=== PATIENT | female | born 1990 | race Caucasian/White ===

== ENCOUNTER → 2020-04-18 | Outpatient (CLI) | payer OTHER ==
--- NOTE | 2020-04-18 10:14 | PFTRPT ---
Visit Date: 04/18/2020 Referring Doctor: MD Champion David Height: 64.00 Inches Weight: 218.00 Lbs BSA: 2.03 Diagnosis: R06.02 Pre and post bronchodilator studies have excellent technical quality. Forced vital capacity is normal. FEV1 is in proportion. Obstructive index is therefore normal. Expiratory limit of the flow-volume loop is normal. No significant bronchodilator response is identified. Total lung capacity is normal. Residual volume is in proportion. Diffusing capacity is normal and remains normal when corrected for alveolar volume, and hemoglobin is acceptable at 12.9. Airway resistance and conductance are normal. IMPRESSION: Normal study. MTDD
== END ==
LOC: M CARPUL 09:35
PROVIDERS: ATTEND Internal Medicine Cardiovascular Disease
DX: R06.02 Shortness of breath (principal)

== ENCOUNTER → 2020-10-23 | Outpatient (REF) | payer OTHER ==
[2020-10-23 18:43] LABS: MAU/CREAT RATIO 11.4 MCG/MG (0.0-30.0)
== END ==
LOC: M LAB REF 16:59
PROVIDERS: ATTEND Nurse Practitioner Family
DX: E11.65 Type 2 diabetes mellitus with hyperglycemia (principal)

== ENCOUNTER → 2021-02-25 | Outpatient (CLI) | payer OTHER ==
--- NOTE | 2021-03-01 16:34 | ECGEPIP ---
[facility] [place] Test Date: 2021-02-25 Pat Name: DA ZAVALA Department: Room: - Gender: Female [employer] Salesperson: leta : 1990 Requested By: UNIQUE Polo Order Number: [id number] Reading MD: Armando Nuñez Measurements Intervals [place] Rate: 97 P: 36 TN: 126 QRS: 66 QRSD: 80 T: 19 QT: 348 QTc: 441 Interpretive Statements Normal sinus rhythm No prior tracing in the system Electronically Signed on 03-01-2021 16:33:33 EDT by Armando Nuñez
== END ==
LOC: M EKG 14:56
PROVIDERS: ATTEND Obstetrics & Gynecology
DX: E11.9 Type 2 diabetes mellitus without complications (principal)

== ENCOUNTER 2021-05-16 20:26 | Inpatient (IN) | payer OTHER ==
[~2021-05-16] VITALS: Ht 162.6 cm; Wt 110.5 kg
[2021-05-16 20:45] VITALS: BP 183/116
[2021-05-16 20:47] VITALS: BP 179/95
[2021-05-16] MEDS ORDERED: PRENTAB9 PO (20:50)
[2021-05-16] MEDS ORDERED: INSUNSD SC (20:50)
[2021-05-16] MEDS ORDERED: NOVOINJ12 SC (20:50)
[2021-05-16] MEDS ORDERED: LABE200T32 PO (20:50)
[2021-05-16 21:05] VITALS: BP 177/106
[2021-05-16] MEDS ORDERED: hydrALAZINE 20MG/ML 1ML VIAL (J0360 PER 20MG) IV STA (21:08)
[2021-05-16 21:28] VITALS: BP 177/93
[2021-05-16] MEDS ORDERED: LABETALOL 200 MG TAB PO STA (21:36)
[2021-05-16 21:48] VITALS: BP 167/90
[2021-05-16 21:48] LABS: HEMATOCRIT 36.4 % (36.0-47.0); HEMOGLOBIN 11.8 g/dl (12.0-15.5); MEAN CORPUSCULAR HEMOGLOBIN 28.3 pg (27.0-33.0); MEAN CORPUSCULAR HGB CONC 32.4 g/dl (32.0-36.5); MEAN CORPUSCULAR VOLUME 87.3 fl (80.0-96.0); PLATELET COUNT, AUTOMATED 394 10^3/uL (150-450); RED BLOOD COUNT 4.17 10^6/uL (4.00-5.40); WHITE BLOOD COUNT 13.6 10^3/uL (4.0-10.0)
[2021-05-16 22:09] VITALS: BP 165/95
[2021-05-16 22:09] LABS: CREATININE,RANDOM URINE 45.6 MG/DL; TOTAL PROTEIN,RANDOM URINE 37.4 MG/DL (0.0-12.0)
[2021-05-16] MEDS ORDERED: LACTATED RINGER'S 1000 ML IV STA (22:11)
[2021-05-16 22:12] LABS: ALBUMIN 2.9 GM/DL (3.2-5.2); ALT/SGPT 27 U/L (12-78); BILIRUBIN,TOTAL 0.2 MG/DL (0.2-1.0); BLOOD UREA NITROGEN 16 MG/DL (7-18); CALCIUM LEVEL 8.8 MG/DL (8.5-10.1); CARBON DIOXIDE LEVEL 22 MEQ/L (21-32); CHLORIDE LEVEL 107 MEQ/L (98-107); CREATININE FOR GFR 0.52 MG/DL (0.55-1.30); GLOMERULAR FILTRATION RATE > 60.0 (>60); GLUCOSE, FASTING 124 MG/DL (70-100); LDH LACTATE DEHYDROGENASE 191 U/L (84-246); SODIUM LEVEL 140 MEQ/L (136-145); TOTAL PROTEIN 6.7 GM/DL (6.4-8.2)
[2021-05-16] MEDS ORDERED: BICITRA 30ML SOLN UDC PO ONE (22:15)
[2021-05-16] MEDS ORDERED: ceFAZolin SOD 2 GM in IV 1 EA IV ONE (22:15)
[2021-05-16] MEDS ORDERED: LR 1,000 ML IV SCH (22:15)
[2021-05-16] MEDS ORDERED: AZITHROMYCIN INJ 500 MG, VIAL MATE ADAPTER 1 EACH in NS 250 ML IV ONE (22:15)
[2021-05-16] MEDS ORDERED: fentaNYL 100 MCG/2 ML INJECTION (J3010) As Ordered ONE ×2 (22:29→23:02)
[2021-05-16] MEDS ORDERED: CARBOPROST TROMETHAMINE 250 MCG/ML AMP ONE (22:30)
[2021-05-16] MEDS ORDERED: propofoL 200 MG/20 ML VIAL As Ordered ONE ×2 (22:30→23:35)
[2021-05-16] MEDS ORDERED: hydrALAZINE 20MG/ML 1ML VIAL (J0360 PER 20MG) As Ordered ONE (22:39)
[2021-05-16] MEDS ORDERED: OXYTOCIN INJ 10 UNITS/ML VIAL (J2590) As Ordered ONE (22:44)
[2021-05-16] MEDS ORDERED: MIDAZOLAM INJ 2MG/2ML VIAL (J2250 PER 1MG) As Ordered ONE (22:47)
[2021-05-16] MEDS ORDERED: dexameTHASONE 4 MG/ML 1ML VIAL (J1100 PER 1MG) As Ordered ONE (22:48)
[2021-05-16] MEDS ORDERED: METOCLOPRAMIDE INJ 10MG/2ML VIAL (J2765 PER 1) As Ordered ONE (22:48)
[2021-05-16] MEDS ORDERED: ONDANSETRON 4MG/2ML VIAL As Ordered ONE (22:48)
[2021-05-16] MEDS ORDERED: LIDOCAINE 2% 100MG/5ML SDV (FOR ANES.) As Ordered ONE (22:49)
[2021-05-16 22:59] LABS: CORD GAS ABE A -3.9; CORD GAS ABE V -6.4; CORD GAS HCO3 A 22.5 MEQ/L; CORD GAS HCO3 V 21.5 MEQ/L; CORD GAS O2 SAT A 69.7 %; CORD GAS O2 SAT V 45.4 %; CORD GAS PCO2 A 45.2 mmHg; CORD GAS PCO2 V 51.6 mmHg; CORD GAS PH A 7.314 UNITS; CORD GAS PH V 7.238 UNITS; CORD GAS PO2 A 29.5 mmHg; CORD GAS PO2 V 21.7 mmHg; CORD GAS SBC A 20.6 MEQ/L; CORD GAS SBC V 18.1 MEQ/L; CORD GAS TCO2 A 23.8 MEQ/L; CORD GAS TCO2 V 23.1 MEQ/L
[2021-05-16] MEDS ORDERED: BUPIVACAINE HCL 0.25% 10ML VIAL As Ordered ONE (23:08)
[2021-05-16] MEDS ORDERED: OXYTOCIN 30 UNITS IN 0.9% NaCl 500ML IV BAG (J2590) As Ordered ONE (23:33)
[2021-05-16] MEDS ORDERED: HYDROMORPHONE HCL 0.5 MG/ 0.5 ML SYRINGE (J1170 PER 1) As Ordered ONE (23:47)
[2021-05-17] VITALS (27 sets, daily range): BP systolic 129–184; BP diastolic 74–98
[2021-05-17] MEDS ORDERED: PROMETHAZINE 25 MG TAB PO PRN (00:25)
[2021-05-17] MEDS ORDERED: OXYTOCIN DRIP 30 UNITS in IV 1 EA IV SCH ×4 (00:25)
[2021-05-17] MEDS ORDERED: ONDANSETRON 4MG/2ML VIAL IV PRN ×2 (00:25→01:00)
[2021-05-17] MEDS ORDERED: MEASLES,MUMPS,RUBELLA VACCINE INJ (MMR-II) (90707) SC SCH (00:25)
[2021-05-17] MEDS ORDERED: RHOGAM 300 MCG (1500 IU) INJ (J2790) IM SCH (00:25)
[2021-05-17] MEDS ORDERED: SIMETHICONE 80MG CHEW TAB PO PRN (00:25)
[2021-05-17] MEDS ORDERED: LR 1,000 ML IV SCH ×3 (00:25→00:55)
[2021-05-17] MEDS ORDERED: oxyCODONE 5MG TAB PO PRN ×3 (00:25→00:55)
[2021-05-17] MEDS ORDERED: CALCIUM GLUCONATE 1,000 MG in D5W MINI-BAG PLUS 100 ML IV PRN (00:45)
[2021-05-17] MEDS: LABETALOL 100MG/20ML VIAL IV PRN ×5 (00:45→01:12)
[2021-05-17] MEDS ORDERED: MORPHINE 2 MG/ML 1ML VIAL (J2270) IV PRN (00:55)
[2021-05-17] MEDS ORDERED: fentaNYL 100 MCG/2 ML INJECTION (J3010) IV PRN (00:55)
[2021-05-17] MEDS ORDERED: MAG Sulf (L&D) 4 GM/100 ML 4 GM in IV 1 EA IV ONE (01:00)
[2021-05-17] MEDS ORDERED: GLUCOSE 4GM CHEW TABLET PO PRN (01:35)
[2021-05-17] MEDS ORDERED: DEXTROSE 50% 50 ML SYRINGE IV PRN (01:35)
[2021-05-17] MEDS ORDERED: GLUCAGON INJ 1MG VIAL SC PRN (01:35)
[2021-05-17] MEDS: MAG Sulf (OBGYN) 20GM/500ML 20,000 MG in IV 1 EA IV SCH ×3 (02:15→22:17)
[2021-05-17 04:59] LABS: APPEARANCE, URINE CLEAR (CLEAR); BACTERIA, URINE AUTO NEGATIVE (NEGATIVE); BILIRUBIN, URINE AUTO NEGATIVE (NEGATIVE); BLOOD, URINE BLOOD NEGATIVE (NEGATIVE); COLOR, URINE YELLOW (YELLOW); GLUCOSE, URINE (UA) AUTO 1+ mg/dL (NEGATIVE); KETONE, URINE AUTO NEGATIVE (NEGATIVE); LEUKOCYTE ESTERASE, URINE AUTO NEGATIVE (NEGATIVE); MUCUS, URINE SMALL (NEGATIVE); NITRITE, URINE AUTO NEGATIVE (NEGATIVE); PROTEIN, URINE AUTO 1+ mg/dL (NEGATIVE); RBC, URINE AUTO 0 /HPF (0-3); SPECIFIC GRAVITY URINE AUTO 1.012 (1.002-1.035); SQUAMOUS EPITHELIAL CELL UR AU 0 /HPF (0-6); UROBILINOGEN, URINE AUTO 0.2 mg/dL (0.0-2.0); WBC, URINE AUTO 0 /HPF (0-3)
[2021-05-17] MEDS: KETOROLAC 30 MG/ML 1ML VIAL IV SCH ×3 (05:12→16:39)
[2021-05-17] MEDS: ACETAMINOPHEN 500 MG TAB PO SCH ×3 (06:11→18:12)
[2021-05-17] MEDS: HumaLOG INSULIN (NovoLOG) PER UNIT SC SCH ×4 (06:59→21:00)
[2021-05-17] MEDS ORDERED: PRENATAL VITAMINS CHEWABLE TABLET PO SCH (09:00)
[2021-05-17] MEDS: PRENATAL VITAMINS CHEWABLE TABLET PO SCH (09:17)
[2021-05-17] MEDS: DOCUSATE SODIUM 100MG CAPSULE PO SCH ×2 (09:17→20:55)
[2021-05-17] MEDS: LABETALOL 200 MG TAB PO SCH ×2 (09:17→20:55)
[2021-05-18] VITALS (10 sets, daily range): BP systolic 129–166; BP diastolic 74–96
[2021-05-18] MEDS ORDERED: UNRESOLVED CLARIFICATION ENTRY XX SCH (00:01)
[2021-05-18] MEDS: ACETAMINOPHEN 500 MG TAB PO SCH ×4 (00:21→18:02)
[2021-05-18] MEDS: IBUPROFEN 800 MG TAB PO SCH ×3 (01:15→18:02)
[2021-05-18 07:06] LABS: HEMATOCRIT 26.9 % (36.0-47.0); MEAN CORPUSCULAR HEMOGLOBIN 28.3 pg (27.0-33.0); MEAN CORPUSCULAR HGB CONC 32.3 g/dl (32.0-36.5); MEAN CORPUSCULAR VOLUME 87.6 fl (80.0-96.0); PLATELET COUNT, AUTOMATED 310 10^3/uL (150-450); RED BLOOD COUNT 3.07 10^6/uL (4.00-5.40); WHITE BLOOD COUNT 11.6 10^3/uL (4.0-10.0)
[2021-05-18 07:08] LABS: HEMOGLOBIN 8.7 g/dl (12.0-15.5)
[2021-05-18] MEDS: HumaLOG INSULIN (NovoLOG) PER UNIT SC SCH ×4 (09:00→21:00)
[2021-05-18] MEDS: DOCUSATE SODIUM 100MG CAPSULE PO SCH ×2 (09:06→21:13)
[2021-05-18] MEDS: PRENATAL VITAMINS CHEWABLE TABLET PO SCH (09:07)
[2021-05-18] MEDS: LABETALOL 200 MG TAB PO SCH ×2 (09:07→18:30)
[2021-05-19] MEDS: ACETAMINOPHEN 500 MG TAB PO SCH ×2 (00:06→06:32)
[2021-05-19] MEDS: IBUPROFEN 800 MG TAB PO SCH ×2 (00:06→08:01)
[2021-05-19 02:00] VITALS: BP 145/85
[2021-05-19 06:00] VITALS: BP 160/85
[2021-05-19] MEDS ORDERED: ACET-683 PO (06:24)
[2021-05-19] MEDS ORDERED: OXYC-517 PO (06:24)
[2021-05-19] MEDS ORDERED: IBUP80TA PO (06:24)
[2021-05-19] MEDS: HumaLOG INSULIN (NovoLOG) PER UNIT SC SCH (07:30)
[2021-05-19] MEDS: DOCUSATE SODIUM 100MG CAPSULE PO SCH (08:01)
[2021-05-19] MEDS: PRENATAL VITAMINS CHEWABLE TABLET PO SCH (08:01)
[2021-05-19 08:12] VITALS: BP 165/85
[2021-05-19] MEDS: LABETALOL 200 MG TAB PO SCH (08:12)
[2021-05-19 08:15] VITALS: BP 168/85
[2021-05-19 08:35] VITALS: BP 164/91
[2021-05-19 09:20] VITALS: BP 159/87
== END 2021-05-19 09:25 | disposition home or self-care (01) | DRG 773 ==
LOC: M LDO 20:26 → M LDI 22:12 → M OBS 05-18 03:59
PROVIDERS: ADMIT Obstetrics & Gynecology; ATTEND Obstetrics & Gynecology
PROC: 10D00Z1 Extraction of Products of Conception, Low, Open Approach (ICD-10-PCS; principal; 2021-05-17)
DX: O14.14 Severe pre-eclampsia complicating childbirth (principal); Z37.0 Single live birth; Z3A.32 32 weeks gestation of pregnancy; O76 Abnormality in fetal heart rate and rhythm complicating labor and delivery; O34.03 Maternal care for unspecified congenital malformation of uterus, third trimester; E11.9 Type 2 diabetes mellitus without complications; O24.32 Unspecified pre-existing diabetes mellitus in childbirth; F17.200 Nicotine dependence, unspecified, uncomplicated; O99.334 Smoking (tobacco) complicating childbirth

== ENCOUNTER 2023-03-18 15:30 | Emergency (ER) | payer OTHER ==
[~2023-03-18] VITALS: Ht 162.6 cm; Wt 96.9 kg
[~2023-03-18 15:30] MED LIST: ACET-683 PO; IBUP80TA PO; INSUNSD SC; LABE200T5 PO; NOVOINJ12 SC; OXYC-517 PO; PRENTAB9 PO
[2023-03-18 17:16] LABS: BASO % 0.1 % (0.0-1.0); EOS % 0.1 % (0.0-3.0); HEMATOCRIT 35.5 % (36.0-47.0); LYMPH # 1.2 10^3/uL (1.5-5.0); LYMPH % 7.8 % (24.0-44.0); MEAN CORPUSCULAR HEMOGLOBIN 30.5 pg (27.0-33.0); MEAN CORPUSCULAR HGB CONC 33.8 g/dl (32.0-36.5); MEAN CORPUSCULAR VOLUME 90.3 fl (80.0-96.0); MONO # 0.4 10^3/uL (0.0-0.8); MONO % 2.6 % (2.0-8.0); NEUTROPHILS # 13.3 10^3/uL (1.5-8.5); NEUTROPHILS % 88.9 % (36.0-66.0); PLATELET COUNT, AUTOMATED 340 10^3/uL (150-450); RED BLOOD COUNT 3.93 10^6/uL (4.00-5.40); WHITE BLOOD COUNT 14.9 10^3/uL (4.0-10.0)
[2023-03-18 17:26] LABS: HEMOGLOBIN A1c 5.5 % (4.0-6.0)
[2023-03-18 17:46] LABS: ALBUMIN 3.6 G/DL (3.2-5.2); ALKALINE PHOSPHATASE 47 U/L (46-116); ALT/SGPT 24 U/L (7.0-40); AST/SGOT 12 U/L (<34); BILIRUBIN,DIRECT < 0.1 MG/DL (<0.4); BILIRUBIN,TOTAL 0.3 MG/DL (0.3-1.2); BLOOD UREA NITROGEN 18 MG/DL (9-23); CALCIUM LEVEL 9.1 MG/DL (8.5-10.1); CARBON DIOXIDE LEVEL 26 MMOL/L (20-31); CHLORIDE LEVEL 104 MMOL/L (98-107); CREATININE FOR GFR 0.37 MG/DL (0.55-1.30); GLOMERULAR FILTRATION RATE > 60.0 (>60); GLUCOSE, FASTING 104 MG/DL (60-100); POTASSIUM SERUM 3.9 MMOL/L (3.5-5.1); SODIUM LEVEL 138 MMOL/L (136-145); TOTAL PROTEIN 6.9 G/DL (5.7-8.2)
[2023-03-18 17:49] LABS: HCG, SERUM QUALITATIVE POSITIVE (NEGATIVE)
[2023-03-18 19:19] VITALS: TEMP 97.9
[2023-03-18 20:45] VITALS: BP 121/79
[2023-03-18 20:46] VITALS: O2SAT 99
== END 2023-03-18 21:09 | disposition home or self-care (01) ==
LOC: M ED 15:30
DX: O99.810 Abnormal glucose complicating pregnancy (principal); O24.112 Pre-existing type 2 diabetes mellitus, in pregnancy, second trimester; Z79.4 Long term (current) use of insulin; Z79.1 Long term (current) use of non-steroidal anti-inflammatories (NSAID); Z79.899 Other long term (current) drug therapy; Z79.891 Long term (current) use of opiate analgesic

== ENCOUNTER → 2023-05-27 | Outpatient (CLI) | payer OTHER | LOC: M WHC 11:59 | PROVIDERS: ATTEND Specialist | DX: O24.112 Pre-existing type 2 diabetes mellitus, in pregnancy, second trimester (principal) ==

== ENCOUNTER → 2023-05-28 | Outpatient (CLI) | payer OTHER ==
[2023-05-28 14:03] LABS: HEMATOCRIT 32.7 % (36.0-47.0); HEMOGLOBIN 11.1 g/dl (12.0-15.5); MEAN CORPUSCULAR HGB CONC 33.9 g/dl (32.0-36.5); MEAN CORPUSCULAR VOLUME 88.4 fl (80.0-96.0); PLATELET COUNT, AUTOMATED 324 10^3/uL (150-450)
== END ==
LOC: M PLALAB 11:29
PROVIDERS: ATTEND Specialist
DX: O24.112 Pre-existing type 2 diabetes mellitus, in pregnancy, second trimester (principal); Z3A.00 Weeks of gestation of pregnancy not specified

== ENCOUNTER → 2023-06-29 | Outpatient (CLI) | payer OTHER ==
[2023-06-29 11:08] LABS: HEMOGLOBIN A1c 6.3 % (4.0-6.0)
== END ==
LOC: M PLALAB 08:19
PROVIDERS: ATTEND Obstetrics & Gynecology
DX: O34.219 Maternal care for unspecified type scar from previous cesarean delivery (principal); Z3A.00 Weeks of gestation of pregnancy not specified

== ENCOUNTER → 2023-06-29 | Outpatient (CLI) | payer OTHER | LOC: M WHC 07:07 | PROVIDERS: ATTEND Obstetrics & Gynecology | DX: O34.219 Maternal care for unspecified type scar from previous cesarean delivery (principal); Z3A.31 31 weeks gestation of pregnancy; O32.1XX0 Maternal care for breech presentation, not applicable or unspecified ==

== ENCOUNTER → 2023-07-21 | Outpatient (REF) | payer OTHER ==
[~2023-07-21] MED LIST changes: +ACET-839 PO; +HUMU1INJ2 SC; +INSU100I12 SQ; +LABE100T6 PO
== END ==
LOC: M SFHCWAGY 10:26
PROVIDERS: ATTEND Specialist
DX: O24.313 Unspecified pre-existing diabetes mellitus in pregnancy, third trimester (principal)

== ENCOUNTER 2023-08-06 07:10 | Inpatient (IN) | payer OTHER ==
[~2023-08-06] VITALS: Ht 162.6 cm; Wt 121.5 kg
[2023-08-06] VITALS (10 sets, daily range): BP systolic 131–170; BP diastolic 72–94; O2SAT 97–99
[2023-08-06] MEDS ORDERED: ASPI81CH33 PO (07:44)
[2023-08-06] MEDS ORDERED: HOME MED LIST COMPLETE! XX SCH (07:50)
[2023-08-06] MEDS: LACTATED RINGER'S 1000 ML IV STA (08:06)
[2023-08-06] MEDS ORDERED: LR 1,000 ML IV SCH (08:35)
[2023-08-06 08:40] LABS: HEMATOCRIT 30.3 % (36.0-47.0); HEMOGLOBIN 10.1 g/dl (12.0-15.5); MEAN CORPUSCULAR HEMOGLOBIN 28.8 pg (27.0-33.0); MEAN CORPUSCULAR HGB CONC 33.3 g/dl (32.0-36.5); MEAN CORPUSCULAR VOLUME 86.3 fl (80.0-96.0); PLATELET COUNT, AUTOMATED 282 10^3/uL (150-450); RED BLOOD COUNT 3.51 10^6/uL (4.00-5.40); WHITE BLOOD COUNT 10.9 10^3/uL (4.0-10.0)
[2023-08-06] MEDS ORDERED: MORPHINE PRES-FREE INJ 10 MG/10 ML VIAL As Ordered ONE (08:44)
[2023-08-06] MEDS ORDERED: KETOROLAC 60MG 2ML VIAL As Ordered ONE (08:44)
[2023-08-06] MEDS ORDERED: ACETAMINOPHEN 1000MG 100ML IV BAG As Ordered ONE (08:44)
[2023-08-06] MEDS ORDERED: ONDANSETRON 4MG 2ML VIAL As Ordered ONE (08:44)
[2023-08-06] MEDS ORDERED: OXYTOCIN 30UNITS IN 0.9% NaCl 500ML IV BAG As Ordered ONE (08:44)
[2023-08-06] MEDS ORDERED: ceFAZolin 1GM VIAL As Ordered ONE (09:02)
[2023-08-06] MEDS: ceFAZolin SOD 2 GM in IV 1 EA IV ONE (09:07)
[2023-08-06] MEDS: ceFAZolin SOD 1 GM in D5W MINI-BAG PLUS 50 ML IV ONE (09:07)
[2023-08-06] MEDS: LR 1,000 ML IV SCH ×3 (09:07→11:42)
[2023-08-06] MEDS: BICITRA 30ML SOLN UDC PO ONE (09:09)
[2023-08-06] MEDS ORDERED: PHENYLephrine 500MCG 5ML (100MCG/ML) SYRINGE As Ordered ONE (10:37)
[2023-08-06] MEDS ORDERED: GLUCOSE 4GM CHEW TABLET PO PRN (10:55)
[2023-08-06] MEDS ORDERED: MEPERIDINE 25 MG/ML 1ML VIAL IV PRN (10:55)
[2023-08-06] MEDS ORDERED: fentaNYL 100 MCG/2 ML INJECTION IV PRN (10:55)
[2023-08-06] MEDS ORDERED: NALBUPHINE HCL 1MG/0.1ML (100MG/10ML) MDV IV PRN ×2 (10:55)
[2023-08-06] MEDS ORDERED: **NOTE PATIENT COMMENT** MISC XX SCH (10:55)
[2023-08-06] MEDS ORDERED: INSULIN LISPRO (NovoLOG) PER UNIT SC PRN (10:55)
[2023-08-06] MEDS ORDERED: PROMETHAZINE 25MG/ML 1ML VIAL IV PRN (10:55)
[2023-08-06] MEDS ORDERED: GLUCAGON INJ 1MG VIAL SC PRN (10:55)
[2023-08-06] MEDS ORDERED: NALOXONE INJ 0.4MG/1ML VIAL IV PRN ×2 (10:55)
[2023-08-06] MEDS ORDERED: DEXTROSE 50% 50ML SYRINGE IV PRN (10:55)
[2023-08-06] MEDS ORDERED: SLF 3 ML SYR IV SCH (10:55)
[2023-08-06] MEDS ORDERED: ONDANSETRON 4MG 2ML VIAL IV PRN (10:55)
[2023-08-06] MEDS ORDERED: oxyCODONE 5MG TAB PO PRN (10:55)
[2023-08-06] MEDS ORDERED: PERCOCET 5MG/325MG TAB PO PRN ×2 (11:30)
[2023-08-06] MEDS ORDERED: RHOGAM 300MCG (1500IU) INJ IM SCH (11:30)
[2023-08-06] MEDS ORDERED: SIMETHICONE 80MG CHEW TAB PO PRN (11:30)
[2023-08-06] MEDS: OXYTOCIN DRIP 30 UNITS in IV 1 EA IV SCH (11:42)
[2023-08-06] MEDS: ONDANSETRON 4MG 2ML VIAL IV PRN (12:11)
[2023-08-06] MEDS ORDERED: METOCLOPRAMIDE INJ 10MG/2ML VIAL As Ordered ONE (12:28)
[2023-08-06] MEDS: METOCLOPRAMIDE INJ 10MG/2ML VIAL IV PRN (12:29)
[2023-08-06] MEDS: diphenhydrAMINE 50MG/ML VIAL IV PRN (16:57)
[2023-08-06] MEDS: KETOROLAC 30 MG/ML 1ML VIAL IV SCH (16:57)
[2023-08-06] MEDS ORDERED: metFORMIN (GLUCOPHAGE) 500MG TAB PO SCH (21:00)
[2023-08-06] MEDS: LABETALOL 200 MG TAB PO SCH (21:28)
[2023-08-07] VITALS (10 sets, daily range): BP systolic 144–181; BP diastolic 69–92; TEMP 97.1; O2SAT 96–99
[2023-08-07 08:27] LABS: HEMATOCRIT 28.2 % (36.0-47.0); HEMOGLOBIN 9.2 g/dl (12.0-15.5); MEAN CORPUSCULAR HEMOGLOBIN 28.7 pg (27.0-33.0); MEAN CORPUSCULAR HGB CONC 32.6 g/dl (32.0-36.5); MEAN CORPUSCULAR VOLUME 87.9 fl (80.0-96.0); PLATELET COUNT, AUTOMATED 260 10^3/uL (150-450); RED BLOOD COUNT 3.21 10^6/uL (4.00-5.40); WHITE BLOOD COUNT 12.3 10^3/uL (4.0-10.0)
[2023-08-07] MEDS: PRENATAL VITAMINS CHEWABLE TABLET PO SCH (09:00)
[2023-08-07] MEDS: IBUPROFEN 800 MG TAB PO SCH (13:29)
[2023-08-07] MEDS: LABETALOL 100MG TAB PO SCH (17:14)
[2023-08-07] MEDS: ACETAMINOPHEN 500 MG TAB PO PRN (17:15)
[2023-08-07] MEDS: metFORMIN XR 500MG TAB *GLUCOPHAGE XR PO SCH (18:43)
[2023-08-08 02:00] VITALS: BP 153/72; O2SAT 98
[2023-08-08] MEDS: DOCUSATE SODIUM 100MG CAPSULE PO PRN (05:17)
[2023-08-08 05:47] VITALS: BP 172/94; O2SAT 96
[2023-08-08 05:51] VITALS: BP 160/80
[2023-08-08] MEDS: MEASLES,MUMPS,RUBELLA VACCINE INJ (MMR-II) SC.IMMUN ONE (07:06)
[2023-08-08 08:08] VITALS: BP 160/80
[2023-08-08 10:00] VITALS: BP 152/84; O2SAT 98
[2023-08-08] MEDS ORDERED: IBUP80TA PO (11:52)
[2023-08-08] MEDS ORDERED: OXYC1TAB23 PO (11:52)
[2023-08-08] MEDS ORDERED: METF-838 PO (11:55)
[2023-08-08] MEDS ORDERED: COLA100C5 PO (11:55)
[2023-08-08] MEDS ORDERED: LABE100T6 PO (11:55)
== END 2023-08-08 13:11 | disposition home or self-care (01) | DRG 784 ==
LOC: M LDI 07:10 → M OBS 13:16
PROVIDERS: ADMIT Specialist; ATTEND Specialist
PROC: 0UT50ZZ Resection of Right Fallopian Tube, Open Approach (ICD-10-PCS; 2023-08-06)
PROC: 10D00Z1 Extraction of Products of Conception, Low, Open Approach (ICD-10-PCS; principal; 2023-08-06 09:30)
DX: O34.211 Maternal care for low transverse scar from previous cesarean delivery (principal); O10.92 Unspecified pre-existing hypertension complicating childbirth; Z37.0 Single live birth; Z3A.37 37 weeks gestation of pregnancy; O32.1XX0 Maternal care for breech presentation, not applicable or unspecified; O40.9XX0 Polyhydramnios, unspecified trimester, not applicable or unspecified; O34.00 Maternal care for unspecified congenital malformation of uterus, unspecified trimester; O24.415 Gestational diabetes mellitus in pregnancy, controlled by oral hypoglycemic drugs; Z79.899 Other long term (current) drug therapy